=== PATIENT | female | born 1970 | race Caucasian/White ===

== ENCOUNTER 2020-03-17 12:44 | Emergency (ER) | payer OTHER ==
[~2020-03-17] VITALS: Ht 165.1 cm; Wt 54.4 kg
[~2020-03-17 12:44] MED LIST: KEFLEX500 MG PO; ZOLOFT25 MG PO
[2020-03-17] MEDS ORDERED: AUGMENTIN 875-1 EACH PO (13:21)
[2020-03-17] MEDS ORDERED: APAP W/CODEINE1 TA2 PO (13:21)
[2020-03-17 14:08] VITALS: BP 126/73
== END 2020-03-17 14:09 | disposition home or self-care (01) ==
LOC: M.ERS 12:44
DX: S40.811A Abrasion of right upper arm, initial encounter (principal); W55.01XA Bitten by cat, initial encounter; Y93.89 Activity, other specified; Y92.89 Other specified places as the place of occurrence of the external cause; Y99.8 Other external cause status

== ENCOUNTER → 2021-06-25 | Outpatient (CLI) | payer OTHER ==
[~2021-06-25] MED LIST changes: +APAP W/CODEINE1 TA2 PO; +AUGMENTIN 875-1 EACH PO
== END ==
LOC: M.RAD 09:30
PROVIDERS: ATTEND Nurse Practitioner Family
DX: Z12.31 Encounter for screening mammogram for malignant neoplasm of breast (principal)